=== PATIENT | male | born 1960 | race Caucasian/White ===

== ENCOUNTER 2017-06-25 18:57 | Emergency (ER) | payer MEDICAID ==
[2017-06-25 19:01] VITALS: BMI 34.4
[2017-06-25 19:05] VITALS: BP 164/78; PULSE 81; RESP 18; TEMP 98.3; O2SAT 95
[2017-06-25] MEDS ORDERED: Oxycodone/Acetaminophen 5/325 mg Tab PO STA (19:22)
--- NOTE | 2017-06-25 19:38 | ED PDOC ---
Arrival/HPI - General Chief Complaint: Abdominal Pain Time Seen by Provider: 06/25/17 19:21 Historian: Patient - History of Present Illness Narrative History of Present Illness (Text): 06/25/17 19:34 A 56 year old male, whose past medical history includes hypertension (currently not on any medication) and lumbar laminectomy, presents to the emergency department complaining of left sided pleuritic chest pain for the past 5 days. Patient reports his pain began after sustaining a blunt hit to his chest wall from a soccer ball. Patient denies any other injuries, fever, chills, nausea, vomiting, abdominal pain, shortness of breath, hemoptysis or any other complaints. Time/Duration: Other (5 days) Symptom Course: Unchanged Quality: Other Context: Other Past Medical History - Provider Review Nursing Documentation Reviewed: Yes - Past History Past History: No Previous - Infectious Disease Hx of Infectious Diseases: None - Tetanus Immunization Tetanus Immunization: Unknown - Musculoskeletal/Rheumatological Hx Falls: No - Psychiatric Hx Depression: No Hx Emotional Abuse: No Hx Physical Abuse: No Hx Substance Use: No - Surgical History Other/Comment: back surgery. L wrist sx - Anesthesia Hx Anesthesia: Yes Hx Anesthesia Reactions: No Hx Malignant Hyperthermia: No - Suicidal Assessment Feels Threatened In Home Enviroment: No Family/Social History - Physician Review Nursing Documentation Reviewed: Yes Family/Social History: No Known Family HX Smoking Status: Heavy Smoker > 10 Cigarettes Daily Hx Alcohol Use: No Hx Substance Use: No Hx Substance Use Treatment: No Allergies/Home Meds Allergies/Adverse Reactions: Allergies No Known Allergies Allergy (Verified 07/08/12 08:48) Review of Systems - Physician Review All systems were reviewed & negative as marked: Yes - Review of Systems Constitutional: absent: Fevers, Night Sweats Respiratory: absent: SOB, Cough (hemoptysis) Gastrointestinal: absent: Abdominal Pain, Nausea, Vomiting Physical Exam Vital Signs Reviewed: Yes Vital Signs Temp Pulse Resp BP Pulse Ox 06/25/17 19:04 98.3 F 81 18 164/78 H 95 Temperature: Afebrile Blood Pressure: Hypertensive Pulse: Regular Respiratory Rate: Normal Appearance: Positive for: Well-Appearing, Non-Toxic, Comfortable, Other (Winces upon taking deep breath) Pain Distress: None Mental Status: Positive for: Alert and Oriented X 3 - Systems Exam Head: Present: Atraumatic, Normocephalic Pupils: Present: PERRL Extroacular Muscles: Present: EOMI Conjunctiva: Present: Normal Mouth: Present: Moist Mucous Membranes Neck: Present: Normal Range of Motion Respiratory/Chest: Present: Good Air Exchange, Tender to Palpation (Distinct localized tenderness over left costal margin and left 7th, 8th and 9th ribs anteriorly), Other (crackles in left base). No: Respiratory Distress, Accessory Muscle Use Cardiovascular: Present: Regular Rate and Rhythm, Normal S1, S2. No: Murmurs Abdomen: Present: Normal Bowel Sounds. No: Tenderness, Distention, Peritoneal Signs Back: Present: Normal Inspection Upper Extremity: Present: Normal Inspection. No: Cyanosis, Edema Lower Extremity: Present: Normal Inspection. No: Edema Neurological: Present: GCS=15, CN II-XII Intact, Speech Normal Skin: Present: Warm, Dry, Normal Color. No: Rashes Psychiatric: Present: Alert, Oriented x 3, Normal Insight, Normal Concentration Medical Decision Making ED Course and Treatment: 06/25/17 19:34 Impression: A 56 year old male with left sided pleuritic chest pain after injury Differential Diagnosis included but are not limited to: Rib contusion, rule out Pneumothorax vs. Rib fracture Plan: -- Left ribs xray -- Oxycodone -- Reassess and disposition Progress Notes: Reassessment Condition: Re-examined, Unchanged - Lab Interpretations Narrative Lab Interpretation (Text): 06/25/17 20:20 Rib series and CXR-Neg for PTX,CARLA.No fractures identified - RAD Interpretation Narrative RAD Interpretations (Text): 06/25/17 20:21 neg for CARLA,PTX,Rib fractures Radiology Orders: 06/25/17 19:21 RIBS LEFT & PA CHEST [RAD] Stat Head Of Data: ED Physician - Medication Orders Current Medication Orders: Discontinued Medications Oxycodone/Acetaminophen (Percocet 5/325 Mg Tab) 1 tab PO STAT STA Stop: 06/25/17 19:23 Last Admin: 06/25/17 19:38 Dose: 1 tab MAR Pain Assessment Document 06/25/17 19:38 CNR (Rec: 06/25/17 19:38 CNR [id number]) Pain Reassessment Is this a pain reassessment? Yes Location Left, Right or Bilateral Left Pain Location Body Site Generalized Description Description Constant - Scribe Statement The provider has reviewed the documentation as recorded by the Debra Sánchez Provider Scribe Attestation: All medical record entries made by the Henrryibarabella were at my direction and personally dictated by me. I have reviewed the chart and agree that the record accurately reflects my personal performance of the history, physical exam, medical decision making, and the department course for this patient. I have also personally directed, reviewed, and agree with the discharge instructions and disposition. Disposition/Present on Arrival - Present on Arrival Any Indicators Present on Arrival: No History of DVT/PE: No History of Uncontrolled Diabetes: No Urinary Catheter: No History of Decub. Ulcer: No History Surgical Site Infection Following: None - Disposition Have Diagnosis and Disposition been Completed?: Yes Diagnosis: Rib contusion Disposition: HOME/ ROUTINE Disposition Time: 20:22 Patient Plan: Discharge Condition: GOOD Discharge Instructions (ExitCare): Rib Contusion (ED) Print Language: JAPANESE Additional Instructions: ice packs to area Prescriptions: Acetaminophen/Hydrocodone Bi [Vicodin 300 mg-5 mg] 1 tab PO QID PRN #12 tab PRN Reason: Pain, Mild (1-3) oxyCODONE/Acetaminophen [Percocet 5/325 mg Tab] 1 ea PO QID PRN #12 tab PRN Reason: Pain, Mild (1-3) Referrals: Giorgio Hinton, [Primary Care Provider] - Follow up with primary Forms: [facility] (Tanzanian)
--- NOTE | 2017-06-26 08:08 | RAD ---
PROCEDURE: Radiographs of the Chest and Left Ribs. HISTORY: trauma COMPARISON: None available. TECHNIQUE: Frontal radiograph of the chest and multiple oblique radiographs of the left ribs were obtained. FINDINGS: LEFT RIBS: No fracture or focal lesion visualized. LUNGS: Clear. PLEURA: No pneumothorax or pleural fluid. CARDIOVASCULAR: Normal sized heart. No pulmonary vascular congestion. OTHER FINDINGS: None. IMPRESSION: Unremarkable radiographs of the chest and left ribs. No left rib fracture.
== END 2017-06-25 20:31 | disposition home or self-care (01) ==
LOC: ED 18:57
DX: S20.212A Contusion of left front wall of thorax, initial encounter (principal); W21.02XA Struck by soccer ball, initial encounter; Y92.89 Other specified places as the place of occurrence of the external cause